=== PATIENT | male | born 1940 | race Caucasian/White ===

== ENCOUNTER 2016-09-16 12:05 | Emergency (ER) | payer MEDICARE ==
[2016-09-16] MEDS ORDERED: Sodium Chloride 0.9% 50 ML SDV IV PRN (12:51)
[2016-09-16] MEDS ORDERED: Sodium Chloride 0.9% 500 ML IV ONE (13:00)
[2016-09-16] MEDS ORDERED: Diatrizoate Meglumine/Diatrizoate Sodium 37% 30 ML Bottle PO SCH (13:00)
[2016-09-16] MEDS ORDERED: Iopamidol 612 MG/ML 100 ML Bottle IV SCH (13:00)
[2016-09-16] MEDS ORDERED: Piperacillin/Tazobactam 3.375 GM in Sodium Chloride 0.9% 100 ML IV SCH (13:45)
--- NOTE | 2016-09-16 16:21 | ER ---
HISTORY OF PRESENT ILLNESS: A 76-year-old male, who comes in with his with complaints of not feeling well. The patient states he is having some trouble breathing. He feels like he tried to swallow something that did not go down right, but he tells me this started before he ate dinner. While he was eating dinner, the sensation got worse. The patient has had problems with respiratory distress in the past and decided that he should come in quickly this time for evaluation. The patient denies any chest pain. He has not been coughing. No shortness of breath or wheezing. He states he just does not feel right. PAST MEDICAL HISTORY: Includes acute respiratory distress, obstructive atelectasis, CHF. The patient's tells me that he has been here 3 or 4 times for respiratory issues in the last year and has been in [place] a couple of times. He has a defibrillator put in by his truck technician in [place] as well. CURRENT MEDICATIONS: Metoprolol, amiodarone, and Flovent. ALLERGIES: NONE. OBJECTIVE: GENERAL APPEARANCE: The patient is awake and alert, in no respiratory distress. VITAL SIGNS: Reviewed. Initial blood pressure is 96/69, saturating 90% on room air. HEENT: Eyes, the patient has watery discharge from his eyes, he tells me this happens when he gets this shortness of breath symptom and has happened like this in the past. Oral mucous membranes are moist. Tonsils not enlarged or injected. Pharynx not inflamed. NECK: Supple. LUNGS: Clear to auscultation today. CARDIAC: Heart sounds distinct with an irregular rate. I do not hear any murmurs today. ABDOMEN: Soft and nontender. Bowel sounds are present. SKIN: Warm and dry. EXTREMITIES: There is no lower extremity edema noted. INITIAL WORKUP: An EKG was obtained, showing a slightly tachycardic rhythm, wide-complex QRS'. O2 was started also. When looking at the bus monitor, his pulse seems to vary a lot; I did correlate this with checking a radial pulse and the patient is skipping 2-4 beats, followed by a couple of weak beats and then there will be some stronger ones; it seems to go back and forth between these variations. Another thing we have noticed is when the patient changes positions, there are definite changes on the bus monitor. Labs today include a CBC showing a normal white count, lymphs are low. CMP is unremarkable. Troponin is normal. At this point, we consulted with the [facility] and per their physician's orders, the patient was started on IV fluids. He already had aspirin today right before coming in, 325 mg. An IV was started. The patient's blood pressure started to drop, readings were in the 180s over 50s and the last reading was around 80/50. The patient was given a bolus of 500 mL. [facility] has been called at this point and I talked with the ER physician at [facility] in [place], Dr. Agrawal, who accepted care for this patient. At this point, a D-dimer was also done with an elevated reading of 1960. DIAGNOSIS: 1. Irregular heartbeat. 2. Possible pulmonary embolism with an elevated D-dimer. The patient was transferred by air to [facility] in [place], leaving our facility about 2 p.m. Upon leaving our facility, he still was not in any respiratory distress and denied any pain. CRS/MODL /[id number] INDERJIT
[2016-09-16 16:41] VITALS: BP 89/46
== END 2016-09-16 14:30 ==
LOC: LB.ED 12:05
DX: I49.9 Cardiac arrhythmia, unspecified (principal); I50.9 Heart failure, unspecified; Z95.0 Presence of cardiac pacemaker
CPT/HCPCS: 36415; 80053; 84484; 85025; 85379; 93005; 96374; 99284; 99285; J2543; J7030; J7040

== ENCOUNTER 2017-01-08 02:25 | Emergency (ER) | payer MEDICARE ==
[2017-01-08] MEDS ORDERED: Albuterol/Ipratropium 3.0-0.5 MG/3 ML Neb Soln NEB PRN ×2 (02:40→02:41)
[2017-01-08] MEDS ORDERED: methylPREDNISolone Sodium Succinate 125 MG/2 ML SDV IVPUSH ONE (02:42)
[2017-01-08] MEDS ORDERED: Azithromycin 500 MG in Sodium Chloride 0.9% 250 ML IV ONE (02:43)
--- NOTE | 2017-01-08 02:49 | EDM.PDOC ---
ED HPI GENERAL MEDICAL PROBLEM - General Chief Complaint: Respiratory Problem Stated Complaint: SOB Time Seen by Provider: 01/08/17 02:25 Source of Information: Reports: Patient, Family History Limitations: Reports: Respiratory Distress - History of Present Illness INITIAL COMMENTS - FREE TEXT/NARRATIVE: states he has had a hard time breathing, his nose has been stuffy; he started to feel more SOB today. No fever, no new cough. Last visit here he was flown out to [place] with resp failure. Onset: Today Duration: Day(s):, Getting Worse Location: Reports: Chest Worsens with: Reports: Other (lying down) Associated Symptoms: Reports: Shortness of Breath - Related Data Allergies Allergy/AdvReac Type Severity Reaction Status Date / Time No Known Allergies Allergy Verified 01/08/17 03:31 Home Meds: Home Meds Albuterol [Proventil HFA] 6.7 gm INH QID PRN 03/23/16 [History] Albuterol/Ipratropium [Combivent Respimat] 4 gm IH QID #1 aer.w.adap 04/19/16 [ Rx] Past Medical History HEENT History: Reports: Impaired Vision Cardiovascular History: Reports: Other (See Below) Other Cardiovascular History: murmur implanted defibrilator Respiratory History: Reports: COPD, SOB Other Respiratory History: Current C/O SOB. - Sat when arrived in Admit room was 86% - NC @ 6lpm - Sat 92% Gastrointestinal History: Reports: GERD Musculoskeletal History: Reports: Fracture, RA, Other (See Below) Other Musculoskeletal History: Fx of L ankle when teen Hematologic History: Reports: Blood Transfusion(s) Other Immunologic History: unable to get due to severe illness of patient - Infectious Disease History Infectious Disease History: Reports: Chicken Pox, Measles - Past Surgical History Cardiovascular Surgical History: Reports: Other (See Below) Social & Family History - Family History Family Medical History: Noncontributory - Tobacco Use Smoking Status *Q: Unknown Ever Smoked Second Hand Smoke Exposure: No - Caffeine Use Caffeine Use: Reports: Coffee - Recreational Drug Use Recreational Drug Use: No ED ROS GENERAL - Review of Systems Review Of Systems: See Below Constitutional: Reports: No Symptoms HEENT: Reports: Rhinitis, Other Respiratory: Reports: Shortness of Breath, Wheezing, Cough, Sputum Cardiovascular: Reports: Dyspnea on Exertion GI/Abdominal: Reports: No Symptoms Musculoskeletal: Reports: No Symptoms Skin: Reports: No Symptoms Neurological: Reports: No Symptoms Psychiatric: Reports: No Symptoms ED EXAM, GENERAL - Physical Exam Exam: See Below Exam Limited By: No Limitations General Appearance: Alert, Moderate Distress Eye Exam: Bilateral Eye: EOMI, PERRL Nose: Nasal Drainage, Clear Rhinorrhea Throat/Mouth: Normal Inspection Head: Atraumatic, Normocephalic Neck: Normal Inspection, Supple, Non-Tender, Full Range of Motion Respiratory/Chest: Respiratory Distress, Decreased Breath Sounds, Rhonchi, Wheezing, Prolonged Expiration Cardiovascular: Tachycardia, Irregularly Irregular GI/Abdominal: Normal Bowel Sounds, No Distention Back Exam: Normal Inspection, Full Range of Motion Extremities: Normal Inspection, Normal Range of Motion Neurological: Alert, Oriented, CN II-XII Intact, Normal Cognition Skin Exam: Warm, Dry, Intact Course - Vital Signs Last Recorded V/S: Last Vital Signs Temp 98.6 F 01/08/17 02:30 Pulse 108 H 01/08/17 04:08 Resp 20 01/08/17 03:46 BP 97/77 01/08/17 04:08 Pulse Ox 93 L 01/08/17 04:17 - Orders/Labs/Meds Labs: Laboratory Tests 01/08/17 01/08/17 01/08/17 Range/Units 03:04 03:04 03:04 WBC 7.6 D (4.0-11.0) K/uL RBC 5.50 (4.50-6.50) M/uL Hgb 14.7 (13.0-18.0) g/dL Hct 43.5 (40.0-54.0) % MCV 79 (76-96) fL MCH 26.7 L (27.0-32.0) pg MCHC 33.8 (31.0-35.0) g/dL RDW 15.5 (11.0-16.0) % Plt Count 246 (150-400) K/uL MPV 9.6 (6.0-10.0) fL Neut % (Auto) 59.4 (45.0-70.0) % Lymph % (Auto) 22.1 (20.0-40.0) % [place] % (Auto) 6.2 (3.0-10.0) % Eos % (Auto) 11.8 H (1.0-5.0) % Baso % (Auto) 0.5 (0.0-0.5) % Neut # (Auto) 4.54 (2.00-7.50) K/uL Lymph # (Auto) 1.69 (1.50-4.00) K/uL [place] # (Auto) 0.47 (0.20-0.80) K/uL Eos # (Auto) 0.90 H (0.04-0.40) K/uL Baso # (Auto) 0.04 (0.02-0.10) K/uL VBG pH 7.38 (7.31-7.41) VBG pCO2 49.9 (41-51) mm/Hg VBG pO2 30 (30-50) mm/Hg VBG HCO3 29.4 H (23.0-28.0) mmol/L VBG O2 Saturation 56 L (60-85) % VBG Base Excess 4 H (-2-3) mm/L O2 Delivery Device Non rebr mask Sodium 137 (136-145) mmol/L Potassium 3.7 (3.5-5.1) mmol/L Chloride 101 (98-107) mmol/L Carbon Dioxide 30.6 (21.0-32.0) mmol/L Anion Gap 9.1 (5.0-15.0) mmol/L BUN 19 (8-26) mg/dL Creatinine 0.82 (0.70-1.30) mg/dL Est Cr Clr Drug Dosing TNP Estimated GFR (MDRD) > 60 (>60) MLS/MIN BUN/Creatinine Ratio 23.2 (6-25) Glucose 129 H (74-100) mg/dL Lactic Acid (0.90-1.70) mmol/L Calcium 9.3 (8.5-10.1) mg/dL Total Bilirubin 0.4 (0.0-1.0) mg/dL AST 19 (15-37) U/L ALT 22 (12-78) U/L Alkaline Phosphatase 58 (46-116) U/L B-Natriuretic Peptide 621 H D (0-450) pg/mL Total Protein 7.6 (6.4-8.2) g/dL Albumin 4.0 (3.4-5.0) g/dL Globulin 3.6 (2.2-4.2) g/dL Albumin/Globulin Ratio 1.1 (0.8-2.0) 01/08/17 Range/Units 03:04 WBC (4.0-11.0) K/uL RBC (4.50-6.50) M/uL Hgb (13.0-18.0) g/dL Hct (40.0-54.0) % MCV (76-96) fL MCH (27.0-32.0) pg MCHC (31.0-35.0) g/dL RDW (11.0-16.0) % Plt Count (150-400) K/uL MPV (6.0-10.0) fL Neut % (Auto) (45.0-70.0) % Lymph % (Auto) (20.0-40.0) % [place] % (Auto) (3.0-10.0) % Eos % (Auto) (1.0-5.0) % Baso % (Auto) (0.0-0.5) % Neut # (Auto) (2.00-7.50) K/uL Lymph # (Auto) (1.50-4.00) K/uL [place] # (Auto) (0.20-0.80) K/uL Eos # (Auto) (0.04-0.40) K/uL Baso # (Auto) (0.02-0.10) K/uL VBG pH (7.31-7.41) VBG pCO2 (41-51) mm/Hg VBG pO2 (30-50) mm/Hg VBG HCO3 (23.0-28.0) mmol/L VBG O2 Saturation (60-85) % VBG Base Excess (-2-3) mm/L O2 Delivery Device Sodium (136-145) mmol/L Potassium (3.5-5.1) mmol/L Chloride (98-107) mmol/L Carbon Dioxide (21.0-32.0) mmol/L Anion Gap (5.0-15.0) mmol/L BUN (8-26) mg/dL Creatinine (0.70-1.30) mg/dL Est Cr Clr Drug Dosing Estimated GFR (MDRD) (>60) MLS/MIN BUN/Creatinine Ratio (6-25) Glucose (74-100) mg/dL Lactic Acid 0.83 L (0.90-1.70) mmol/L Calcium (8.5-10.1) mg/dL Total Bilirubin (0.0-1.0) mg/dL AST (15-37) U/L ALT (12-78) U/L Alkaline Phosphatase (46-116) U/L B-Natriuretic Peptide (0-450) pg/mL Total Protein (6.4-8.2) g/dL Albumin (3.4-5.0) g/dL Globulin (2.2-4.2) g/dL Albumin/Globulin Ratio (0.8-2.0) Meds: Medications Discontinued Medications Generic Name Dose Route Start Last Admin Trade Name Freq PRN Reason Stop Dose Admin Albuterol 2.5 mg 01/08/17 03:10 01/08/17 03:12 Proventil Neb Soln NEB 01/08/17 03:11 2.5 mg ONETIME ONE Administration Albuterol/Ipratropium 3 ml 01/08/17 02:40 01/08/17 02:28 Duoneb 3.0-0.5 Mg/3 Ml NEB 3 ml Q2H PRN Administration Shortness of Breath Albuterol/Ipratropium 3 ml 01/08/17 02:41 01/08/17 02:45 Duoneb 3.0-0.5 Mg/3 Ml NEB 3 ml Q2H PRN Administration Shortness of Breath Furosemide 20 mg 01/08/17 03:59 01/08/17 04:05 Lasix IVPUSH 01/08/17 04:00 20 mg NOW ONE Administration Furosemide Confirm 01/08/17 04:04 01/08/17 04:15 Lasix Administered 01/08/17 04:05 Not Given Dose 100 mg .ROUTE .STK-MED ONE Azithromycin 500 mg/ Sodium 250 mls @ 250 mls/hr 01/08/17 02:43 01/08/17 03: 03 Chloride IV 01/08/17 03:42 250 mls/hr ONETIME ONE Administration Ceftriaxone Sodium 1 gm/ 50 mls @ 100 mls/hr 01/08/17 03:20 01/08/17 04:09 Sodium Chloride IV 01/08/17 03:49 100 mls/hr ONETIME ONE Administration Methylprednisolone Sodium Succinate 125 mg 01/08/17 02:42 01/08/17 02:49 Solu-Medrol IVPUSH 01/08/17 02:43 125 mg ONETIME ONE Administration - Re-Assessments/Exams Free Text/Narrative Re-Assessment/Exam: 01/08/17 03:21 IV established Duo neb given Solumedrol 125 mg IV Labs here for BC / studies Chest xray Duoneb Azithromycin 500 mg IV Off NRB to 4 L NC Sats 90%-91% albuterol neb Rocephin ordered 01/08/17 03:31 He states he is feeling a little better. 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 01/08/17 04:00 He is on 1.5 L now and Sats are 93% He wants to go home. Will give him 20 mg of Lasix X1 dose Home with Prednisone 50 mg daily for 5 days Levaquin 750 mg daily for 10 days He is to return if his oxygen level falls below 90% and sustains. Departure - Departure Time of Disposition: 05:00 Disposition: Home, Self-Care 01 Condition: Fair Clinical Impression: Shortness of breath Pneumonia Qualifiers: Pneumonia type: due to unspecified organism Laterality: unspecified laterality Lung location: unspecified part of lung Qualified Code(s): J18.9 - Pneumonia, unspecified organism - Discharge Information Instructions: Levofloxacin tablets, Prednisone tablets Referrals: PCP,None [Primary Care Provider] - Forms: ED Department Discharge Additional Instructions: Fill provided prescriptions at regular pharmacy tomorrow and begin taking as directed, starting at 5pm on 01/08/2017 and daily until all pills are gone, as instructed. Activity as tolerated. Follow up with regular provider as needed. Should symptoms worsen, or persist, follow up in clinic right away. Call with any questions. - Problem List & Annotations (1) Pneumonia SNOMED Code(s): 841137753 Code(s): J18.9 - PNEUMONIA, UNSPECIFIED ORGANISM Status: Acute Priority: High Qualifiers: Pneumonia type: due to unspecified organism Laterality: unspecified laterality Lung location: unspecified part of lung Qualified Code(s): J18.9 - Pneumonia, unspecified organism - Problem List Review Problem List Initiated/Reviewed/Updated: Yes - Assessment/Plan Plan: Home, I did recommend a night at the hospital however he feels he can go home. He is tolerating being off of oxygen now; sats 94% on RA To start prednisone 50 mg daily for 5 days; to start at 5 pm this evening Levaquin 750 mg daily for 10 days; to start at 5 pm Nasal saline prn zyrtec 10 mg daily Albuterol nebs every 4 hours and as needed; explained that if he is needed to do this hourly, he needs to return.
[2017-01-08] MEDS ORDERED: Albuterol 0.083% 2.5 MG/3 ML Neb Soln NEB ONE (03:10)
[2017-01-08] MEDS ORDERED: cefTRIAXone 1 GM in Sodium Chloride 0.9% 50 ML IV ONE (03:20)
[2017-01-08] MEDS ORDERED: Furosemide 40 MG/4 ML VIAL IVPUSH ONE (03:59)
[2017-01-08] MEDS ORDERED: Furosemide 100 MG/10 ML SDV ONE (04:04)
[2017-01-08 04:20] VITALS: BP 97/77
--- NOTE | 2017-01-08 09:31 | CR ---
DATE OF SERVICE: 01/08/2017 CLINICAL DATA: SOB AP PORTABLE CHEST Comparison is made to a prior exam dated 06/29/2016. The heart size is stable. The cardiac pacer and pacer wire remain in unchanged position. 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 It appears unchanged from the prior exam. The left hilum appears mildly prominent, unchanged from the prior exam. The poorly defined area of increased density in the right mid lung on the prior exam has partially resolved. The exam is otherwise unchanged. No new abnormalities. [id number] [facility]
== END 2017-01-08 04:25 | disposition home or self-care (01) ==
LOC: LB.ED 02:25
DX: J18.9 Pneumonia, unspecified organism (principal); J44.9 Chronic obstructive pulmonary disease, unspecified; K21.9 Gastro-esophageal reflux disease without esophagitis; M06.9 Rheumatoid arthritis, unspecified
CPT/HCPCS: 36415; 71010; 80053; 82803; 83605; 83880; 85025; 87040; 96374; 99283; J0456; J0696; J1940; J2930; J7050; J7620; 99284

== ENCOUNTER 2017-01-27 22:12 | Emergency (ER) | payer MEDICARE ==
[2017-01-27] MEDS ORDERED: Albuterol/Ipratropium 3.0-0.5 MG/3 ML Neb Soln NEB PRN (22:28)
[2017-01-27] MEDS ORDERED: Sodium Chloride 0.9% 10 ML Syringe FLUSH PRN (22:28)
[2017-01-27] MEDS ORDERED: methylPREDNISolone Sodium Succinate 125 MG/2 ML SDV IVPUSH ONE (22:29)
[2017-01-27] MEDS ORDERED: Loratadine 5 MG/5 ML Soln ML (120 ML Bottle) PO ONE (22:36)
[2017-01-28 00:14] VITALS: BP 124/63
--- NOTE | 2017-01-28 08:38 | CR ---
DATE OF SERVICE: 01/27/17 CLINICAL DATA: SOB PORTABLE CHEST: Comparison made to a prior exam dated 01/08/2017. The cardiac pacer and pacer wire remain unchanged in position. The heart size is stable. 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 There is persistent prominence of the left hilum. These findings are unchanged from the prior exam. There are mild atelectasis changes in the right lung base. The right lung is otherwise clear. The exam is otherwise unchanged from the prior. The splenic flexure of the colon appears to be mildly distended. [id number] MTDD
--- NOTE | 2017-02-06 10:45 | EDM.PDOC ---
ED HPI GENERAL MEDICAL PROBLEM - General Chief Complaint: General Stated Complaint: dyspnea Time Seen by Provider: 01/27/17 22:30 Source of Information: Reports: Patient History Limitations: Reports: No Limitations - History of Present Illness INITIAL COMMENTS - FREE TEXT/NARRATIVE: This is a 77yo M who came in to the ER and states he felt sob. He went to a movie and was doing well and per started coughing and then felt sob. He came to the ER shortly after he started to cough with complaints of dyspnea. He has a history of COPD. He states he takes all his medications. He did not try any treatment at home. Onset: Sudden Duration: Hour(s): Location: Reports: Chest Severity: Mild Improves with: Reports: None Worsens with: Reports: None Associated Symptoms: Reports: Shortness of Breath - Related Data Allergies Allergy/AdvReac Type Severity Reaction Status Date / Time No Known Allergies Allergy Verified 01/08/17 03:31 Home Meds: Home Meds Albuterol [Proventil HFA] 6.7 gm INH QID PRN 03/23/16 [History] Albuterol/Ipratropium [Combivent Respimat] 4 gm IH QID #1 aer.w.adap 04/19/16 [ Rx] Past Medical History HEENT History: Reports: Impaired Vision Cardiovascular History: Reports: Heart Failure, Heart Murmur, SOB on Exertion, Other (See Below) Other Cardiovascular History: murmur implanted defibrilator Respiratory History: Reports: COPD, SOB Other Respiratory History: Current C/O SOB.; diaphgragmatic hernia and paralyzed diaphragm, 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 (<25%) Gastrointestinal History: Reports: GERD Musculoskeletal History: Reports: Fracture, RA, Other (See Below) Other Musculoskeletal History: Fx of L ankle when teen Hematologic History: Reports: Blood Transfusion(s) Other Immunologic History: unable to get due to severe illness of patient - Infectious Disease History Infectious Disease History: Reports: Chicken Pox, Measles - Past Surgical History Cardiovascular Surgical History: Reports: AICD, Other (See Below) Other Cardiovascular Surgeries/Procedures: defibulater placed 04/24/2016 Social & Family History - Family History Family Medical History: Noncontributory - Tobacco Use Smoking Status *Q: Never Smoker Second Hand Smoke Exposure: No - Caffeine Use Caffeine Use: Reports: Coffee - Recreational Drug Use Recreational Drug Use: No ED ROS GENERAL - Review of Systems Review Of Systems: ROS reveals no pertinent complaints other than HPI. ED EXAM, GENERAL - Physical Exam Exam: See Below Exam Limited By: No Limitations General Appearance: Alert, WD/WN, Mild Distress Eye Exam: Bilateral Eye: EOMI Ears: Normal External Exam Nose: Normal Inspection Throat/Mouth: Normal Inspection Head: Atraumatic, Normocephalic Neck: Normal Inspection Respiratory/Chest: No Respiratory Distress, Decreased Breath Sounds, Wheezing Cardiovascular: Normal Peripheral Pulses Extremities: Normal Inspection Neurological: Alert, Oriented, CN II-XII Intact Psychiatric: Normal Affect, Normal Mood Skin Exam: Warm, Dry, Intact Course - Vital Signs Last Recorded V/S: Last Vital Signs Temp 37.4 C 01/27/17 22:20 Pulse 112 H 01/27/17 22:20 Resp 30 H 01/27/17 22:20 BP 124/63 01/27/17 22:20 Pulse Ox 93 L 01/28/17 01:12 - Orders/Labs/Meds Labs: Laboratory Tests 01/27/17 01/27/17 01/27/17 Range/Units 22:35 22:35 22:35 WBC 6.7 (4.0-11.0) K/uL RBC 5.24 (4.50-6.50) M/uL Hgb 13.9 (13.0-18.0) g/dL Hct 41.5 (40.0-54.0) % MCV 79 (76-96) fL MCH 26.5 L (27.0-32.0) pg MCHC 33.5 (31.0-35.0) g/dL RDW 15.4 (11.0-16.0) % Plt Count 212 (150-400) K/uL MPV 9.7 (6.0-10.0) fL Neut % (Auto) 63.2 (45.0-70.0) % Lymph % (Auto) 19.2 L (20.0-40.0) % [place] % (Auto) 6.6 (3.0-10.0) % Eos % (Auto) 10.4 H (1.0-5.0) % Baso % (Auto) 0.6 H (0.0-0.5) % Neut # (Auto) 4.24 (2.00-7.50) K/uL Lymph # (Auto) 1.29 L (1.50-4.00) K/uL [place] # (Auto) 0.44 (0.20-0.80) K/uL Eos # (Auto) 0.70 H (0.04-0.40) K/uL Baso # (Auto) 0.04 (0.02-0.10) K/uL VBG pH 7.33 (7.31-7.41) Sodium 139 (136-145) mmol/L Potassium 4.1 (3.5-5.1) mmol/L Chloride 103 (98-107) mmol/L Carbon Dioxide 29.9 (21.0-32.0) mmol/L Anion Gap 10.2 (5.0-15.0) mmol/L BUN 19 (8-26) mg/dL Creatinine 0.64 L D (0.70-1.30) mg/dL Est Cr Clr Drug Dosing 86.82 mL/min Estimated GFR (MDRD) > 60 (>60) MLS/MIN BUN/Creatinine Ratio 29.7 H (6-25) Glucose 96 (74-100) mg/dL Calcium 8.7 (8.5-10.1) mg/dL Troponin I < 0.017 (0.000-0.060) ng/mL B-Natriuretic Peptide 1090 H D (0-450) pg/mL Meds: Medications Discontinued Medications Generic Name Dose Route Start Last Admin Trade Name Freq PRN Reason Stop Dose Admin Albuterol/Ipratropium 3 ml 01/27/17 22:28 01/27/17 22:25 Duoneb 3.0-0.5 Mg/3 Ml NEB 3 ml Q4H PRN Administration Shortness of Breath Loratadine 10 mg 01/27/17 22:36 01/27/17 22:37 Claritin PO 01/27/17 22:37 10 mg DAILY ONE Administration Methylprednisolone Sodium Succinate 125 mg 01/27/17 22:29 01/27/17 22:35 Solu-Medrol IVPUSH 01/27/17 22:30 125 mg ONETIME ONE Administration Sodium Chloride 10 ml 01/27/17 22:28 01/27/17 22:40 Saline Flush FLUSH 10 ml ASDIRECTED PRN Administration Keep Vein Open - Re-Assessments/Exams Free Text/Narrative Re-Assessment/Exam: Greatly improved symptoms with nebulizer. Oxygen saturations around 94-96%. Departure - Departure Time of Disposition: 00:15 Disposition: Home, Self-Care 01 Condition: Good Clinical Impression: Cough COPD (chronic obstructive pulmonary disease) Qualifiers: COPD type: chronic bronchitis Chronic bronchitis type: simple Qualified Code(s) : J41.0 - Simple chronic bronchitis - Discharge Information Forms: ED Department Discharge Additional Instructions: Routine follow up with regular provider within next week. Should symptoms worsen, return to be seen. Call with any questions. Counseled on medication compliance and use of nebulizer. Patient agrees with plan of care and f/u.
== END 2017-01-27 23:25 | disposition home or self-care (01) ==
LOC: LB.ED 22:12
DX: J41.0 Simple chronic bronchitis (principal); I50.9 Heart failure, unspecified; K21.9 Gastro-esophageal reflux disease without esophagitis; Z95.810 Presence of automatic (implantable) cardiac defibrillator
CPT/HCPCS: 36415; 71010; 80048; 82800; 83880; 84484; 85025; 93005; 96374; 99285; A9270; J2930; J7050; J7620; 99283

== ENCOUNTER 2017-02-24 08:58 | Emergency (ER) | payer MEDICARE ==
--- NOTE | 2017-02-24 09:41 | EDM.PDOC ---
ED HPI GENERAL MEDICAL PROBLEM - General Stated Complaint: LOW OXYGEN SAT Time Seen by Provider: 02/24/17 09:00 Source of Information: Reports: Patient History Limitations: Reports: No Limitations - History of Present Illness INITIAL COMMENTS - FREE TEXT/NARRATIVE: According to patient he was fine until yesterday, last night he started to cough and have some productive sputum. He has been having nasal congestion and drainage since last night too.Today morning he felt a little short of breath and hence he came into the emergency room. Cough is minimally productive. Wheezing. No sore throat, fever or chills. His initial SPO2 was 88% on room air , he was started on O2 by non rebreather. 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 No nausea or vomiting. Feels weak and tired. No other complaints. Onset: Today Improves with: Reports: None Worsens with: Reports: None Associated Symptoms: Reports: Cough, Shortness of Breath, Weakness. Denies: Confusion, Chest Pain, Fever/Chills, Headaches, Malaise, Nausea/Vomiting, Rash, Seizure, Syncope - Related Data Allergies Allergy/AdvReac Type Severity Reaction Status Date / Time No Known Allergies Allergy Verified 02/24/17 09:22 Home Meds: Home Meds Albuterol [Proventil HFA] 6.7 gm INH QID PRN 03/23/16 [History] Albuterol/Ipratropium [Combivent Respimat] 4 gm IH QID #1 aer.w.adap 04/19/16 [ Rx] Past Medical History HEENT History: Reports: Impaired Vision Cardiovascular History: Reports: Heart Failure, Heart Murmur, SOB on Exertion, Other (See Below) Other Cardiovascular History: murmur implanted defibrilator Respiratory History: Reports: COPD, SOB Other Respiratory History: Current C/O SOB.; diaphgragmatic hernia and paralyzed diaphragm, 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 (<25%) Gastrointestinal History: Reports: GERD Musculoskeletal History: Reports: Fracture, RA, Other (See Below) Other Musculoskeletal History: Fx of L ankle when teen Hematologic History: Reports: Blood Transfusion(s) Other Immunologic History: unable to get due to severe illness of patient - Infectious Disease History Infectious Disease History: Reports: Chicken Pox, Measles - Past Surgical History Cardiovascular Surgical History: Reports: AICD, Other (See Below) Other Cardiovascular Surgeries/Procedures: defibulater placed 04/24/2016 Social & Family History - Family History Family Medical History: Noncontributory - Tobacco Use Smoking Status *Q: Never Smoker Second Hand Smoke Exposure: No - Caffeine Use Caffeine Use: Reports: Coffee - Recreational Drug Use Recreational Drug Use: No ED ROS GENERAL - Review of Systems Review Of Systems: See Below Constitutional: Reports: Weakness. Denies: Fever, Chills, Night Sweats HEENT: Reports: Rhinitis, Sinus Problem. Denies: Throat Pain, Throat Swelling Respiratory: Reports: Shortness of Breath, Wheezing, Cough, Sputum Cardiovascular: Denies: Chest Pain, Lightheadedness GI/Abdominal: Denies: Abdominal Pain, Nausea, Vomiting : Denies: Dysuria, Urinary Retention Musculoskeletal: Denies: Joint Pain, Joint Swelling Skin: Denies: Bruising, Pruritis, Rash Neurological: Denies: Confusion, Dizziness, Headache ED EXAM, GENERAL - Physical Exam Exam: See Below Exam Limited By: No Limitations General Appearance: Alert, WD/WN, No Apparent Distress Eye Exam: Bilateral Eye: EOMI, PERRL Ears: Normal External Exam, Normal Canal, Hearing Grossly Normal, Normal TMs Ear Exam: Bilateral Ear: Auricle Normal, Canal Normal, TM normal Nose: Normal Inspection, Normal Mucosa, No Blood, Nasal Drainage (clear) Throat/Mouth: Normal Inspection, Normal Lips, Normal Teeth, Normal Gums, Normal Oropharynx, Normal Voice, No Airway Compromise Head: Atraumatic, Normocephalic Neck: Normal Inspection, Supple, Non-Tender, Full Range of Motion Respiratory/Chest: No Respiratory Distress, No Accessory Muscle Use, Chest Non- Tender, Decreased Breath Sounds (B/L), Rhonchi (Scattered fine rhonchi heard all over the lung viera). No: Crackles, Rales Cardiovascular: Normal Peripheral Pulses, Regular Rate, Rhythm, No Edema, No Gallop, No JVD, No Murmur, No Rub Extremities: Normal Inspection, Normal Range of Motion, Non-Tender, Normal Capillary Refill, No Pedal Edema Course - Vital Signs Text/Narrative:: Pt's Chest Xray is normal, and his CBC is normal at 8.4. Pt did receive duoneb one dose in the emergency room, claims is breathing is better, but still has nasal congestion and clearing his throat. Pt has significant restrictive lung disease and hence he has low O2 sats. HE is running at 88-89% on Room air, but not in any respiratory distress. I have reassured patient, that he has early URi, but considering his restrictive lung disease, I have started him on ZPAK to prevent any deterioration or chest infection. Advised steam inhalations 2-3 times daily, continue flovent inhaler as before, but increase albuterol inhaler to 2 puff every 4 hrs. Also pt will need home O2 and also home trend-ox testing. I have a feeling that he has chronic hypoxia. Pt and his spouse understand the plan and agree to it. Last Recorded V/S: Last Vital Signs Temp 98.6 F 02/24/17 09:48 Pulse 115 H 02/24/17 09:48 Resp 24 H 02/24/17 09:48 BP 152/99 H 02/24/17 09:48 Pulse Ox 86 L 02/24/17 09:48 - Orders/Labs/Meds Orders: Active Orders 24 hr Category Date Time Status Chest 2V [CR] Stat Exams 02/24/17 09:35 Taken Labs: Laboratory Tests 02/24/17 Range/Units 09:34 WBC 8.5 D (4.0-11.0) K/uL RBC 5.52 (4.50-6.50) M/uL Hgb 15.0 (13.0-18.0) g/dL Hct 43.5 (40.0-54.0) % MCV 79 (76-96) fL MCH 27.2 (27.0-32.0) pg MCHC 34.5 (31.0-35.0) g/dL RDW 15.6 (11.0-16.0) % Plt Count 228 (150-400) K/uL MPV 9.2 (6.0-10.0) fL Neut % (Auto) 67.8 (45.0-70.0) % Lymph % (Auto) 13.5 L (20.0-40.0) % [place] % (Auto) 6.0 (3.0-10.0) % Eos % (Auto) 12.3 H (1.0-5.0) % Baso % (Auto) 0.4 (0.0-0.5) % Neut # (Auto) 5.74 (2.00-7.50) K/uL Lymph # (Auto) 1.14 L (1.50-4.00) K/uL [place] # (Auto) 0.51 (0.20-0.80) K/uL Eos # (Auto) 1.04 H (0.04-0.40) K/uL Baso # (Auto) 0.03 (0.02-0.10) K/uL Departure - Departure Time of Disposition: 10:30 Disposition: Home, Self-Care 01 Condition: Fair Clinical Impression: Viral URI with cough - Discharge Information Referrals: PCP,None [Primary Care Provider] - - Problem List & Annotations (1) Viral URI with cough SNOMED Code(s): 63416737 Code(s): J06.9 - ACUTE UPPER RESPIRATORY INFECTION, UNSPECIFIED; B97.89 - OTH VIRAL AGENTS THE CAUSE OF DISEASES CLASSD [id number] Status: Acute Current Visit: Yes - Problem List Review Problem List Initiated/Reviewed/Updated: Yes - My Orders Last 24 Hours: My Active Orders 02/24/17 09:35 Chest 2V [CR] Stat - Assessment/Plan Last 24 Hours: My Active Orders 02/24/17 09:35 Chest 2V [CR] Stat Assessment:: Viral URI with cough Plan: I have reassured patient, that he has early URi, but considering his restrictive lung disease, I have started him on ZPAK to prevent any deterioration or chest infection. Advised steam inhalations 2-3 times daily, continue flovent inhaler as before, but increase albuterol inhaler to 2 puff every 4 hrs. Also pt will need home O2 and also home trend-ox testing. I have a feeling that he has chronic hypoxia. Pt and his spouse understand the plan and agree to it.
[2017-02-24 09:51] VITALS: BP 152/99
[2017-02-24] MEDS ORDERED: Azithromycin 250 MG Tab ONE (10:10)
[2017-02-24] MEDS ORDERED: Albuterol/Ipratropium 3.0-0.5 MG/3 ML Neb Soln NEB PRN (10:43)
--- NOTE | 2017-02-25 07:24 | CR ---
DATE OF SERVICE: 02/24/17 CLINICAL DATA: cough and SOB PA AND LATERAL CHEST: Comparison made to a prior exam dated 01/27/17. The heart size is stable. The cardiac pacer remains unchanged in position. There is persistent eventration of the left hemidiaphragm and atelectatic changes in the left lung base. The right lung remains hyperexpanded. No significant changes from the prior exam. [id number] MTDD
== END 2017-02-24 10:15 | disposition home or self-care (01) ==
LOC: LB.ED 08:58
DX: J06.9 Acute upper respiratory infection, unspecified (principal); J44.9 Chronic obstructive pulmonary disease, unspecified
CPT/HCPCS: 36415; 71020; 85025; 99284; A9270; 99283

== ENCOUNTER 2017-03-13 04:10 | Emergency (ER) | payer MEDICARE ==
[2017-03-13] MEDS ORDERED: methylPREDNISolone Sodium Succinate 125 MG/2 ML SDV IM ONE (04:25)
--- NOTE | 2017-03-13 04:35 | EDM.PDOC ---
ED HPI GENERAL MEDICAL PROBLEM - General Chief Complaint: Respiratory Problem Stated Complaint: SOB Time Seen by Provider: 03/13/17 04:15 Source of Information: Reports: Patient, Family History Limitations: Reports: Respiratory Distress - History of Present Illness INITIAL COMMENTS - FREE TEXT/NARRATIVE: This is a 77yo M with history of restrictive airway disease, prior hypoxic respiratory failure, history of ventricular tachycardia, grade 1 diastolic dysfunction, here for shortness of breath. Per patient's oxygen saturation dropped to 65% and when brought in with respiratory distress he was ranging 71- 84 on room air and placed on a non-rebreather and came up to 92-94%. Patient states he was short of breath but but denies any chest pain. He has trouble speaking due to trying to catch his breath with the non-rebreather. Per patient has been getting short of breath gradually worse the past 3 days and possibly longer. states he has been having increased yellowy mucus of the nasopharyngeal passages that he coughs or blows out his nose. Onset: Gradual Duration: Day(s):, Getting Worse Location: Reports: Chest Severity: Severe Improves with: Reports: None Worsens with: Reports: Movement Associated Symptoms: Reports: Shortness of Breath Treatments CAREER DEVELOPMENT ENGINEER: Reports: Home Treatments, Other Medication(s) - Related Data Allergies Allergy/AdvReac Type Severity Reaction Status Date / Time No Known Allergies Allergy Verified 02/24/17 10:46 Home Meds: Home Meds Albuterol [Proventil HFA] 6.7 gm INH QID PRN 03/23/16 [History] Albuterol/Ipratropium [Combivent Respimat] 4 gm IH QID #1 aer.w.adap 04/19/16 [ Rx] Past Medical History HEENT History: Reports: Impaired Vision Cardiovascular History: Reports: Heart Failure, Heart Murmur, SOB on Exertion, Other (See Below) Other Cardiovascular History: murmur implanted defibrilator Respiratory History: Reports: COPD, SOB Other Respiratory History: Current C/O SOB.; diaphgragmatic hernia and paralyzed diaphragm, 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 (<25%) Gastrointestinal History: Reports: GERD Musculoskeletal History: Reports: Fracture, RA, Other (See Below) Other Musculoskeletal History: Fx of L ankle when teen Hematologic History: Reports: Blood Transfusion(s) Other Immunologic History: unable to get due to severe illness of patient - Infectious Disease History Infectious Disease History: Reports: Chicken Pox, Measles - Past Surgical History Cardiovascular Surgical History: Reports: AICD, Other (See Below) Other Cardiovascular Surgeries/Procedures: defibulater placed 04/24/2016 Social & Family History - Family History Family Medical History: Noncontributory - Tobacco Use Smoking Status *Q: Never Smoker Second Hand Smoke Exposure: No - Caffeine Use Caffeine Use: Reports: Coffee - Recreational Drug Use Recreational Drug Use: No ED ROS GENERAL - Review of Systems Review Of Systems: See Below Constitutional: Reports: No Symptoms HEENT: Reports: No Symptoms Respiratory: Reports: Shortness of Breath, Wheezing, Cough, Sputum Cardiovascular: Reports: No Symptoms Endocrine: Reports: No Symptoms GI/Abdominal: Reports: No Symptoms : Reports: No Symptoms Musculoskeletal: Reports: No Symptoms Skin: Reports: No Symptoms Neurological: Reports: No Symptoms Psychiatric: Reports: Agitation, Anxiety ED EXAM, GENERAL - Physical Exam Exam: See Below Exam Limited By: Respiratory Distress General Appearance: Anxious, Moderate Distress Eye Exam: Bilateral Eye: EOMI Ears: Normal External Exam Nose: Normal Inspection, Nasal Drainage Head: Atraumatic, Normocephalic Neck: Normal Inspection Respiratory/Chest: Respiratory Distress, Decreased Breath Sounds, Rales, Wheezing Cardiovascular: Normal Peripheral Pulses, Regular Rate, Rhythm Extremities: Normal Inspection Neurological: Alert, Oriented Psychiatric: Anxious Skin Exam: Dry, Intact, Cool Course - Orders/Labs/Meds Orders: Active Orders 24 hr Category Date Time Status RT Aerosol Therapy [RC] ASDIRECTED Care 03/13/17 04:42 Active Chest 1V Frontal [CR] Stat Exams 03/13/17 04:33 Ordered Albuterol/Ipratropium [DuoNeb 3.0-0.5 MG/3 ML] Med 03/13/17 04:42 Active 3 ml NEB Q2H PRN Medication Orders Albuterol/Ipratropium (Duoneb 3.0-0.5 Mg/3 Ml) 3 ml NEB Q2H PRN PRN Reason: Shortness of Breath Labs: Laboratory Tests 03/13/17 03/13/17 03/13/17 Range/Units 05:15 05:15 05:15 WBC 8.5 (4.0-11.0) K/uL RBC 5.35 (4.50-6.50) M/uL Hgb 14.5 (13.0-18.0) g/dL Hct 44.3 (40.0-54.0) % MCV 83 (76-96) fL MCH 27.1 (27.0-32.0) pg MCHC 32.7 (31.0-35.0) g/dL RDW 15.1 (11.0-16.0) % Plt Count 281 D (150-400) K/uL MPV 9.4 (6.0-10.0) fL Neut % (Auto) 36.7 L (45.0-70.0) % Lymph % (Auto) 31.7 (20.0-40.0) % [place] % (Auto) 7.9 (3.0-10.0) % Eos % (Auto) 23.2 H (1.0-5.0) % Baso % (Auto) 0.5 (0.0-0.5) % Neut # (Auto) 3.12 (2.00-7.50) K/uL Lymph # (Auto) 2.69 (1.50-4.00) K/uL [place] # (Auto) 0.67 (0.20-0.80) K/uL Eos # (Auto) 1.97 H (0.04-0.40) K/uL Baso # (Auto) 0.04 (0.02-0.10) K/uL VBG pH 7.02 L* (7.31-7.41) VBG pCO2 106 H (41-51) mm/Hg VBG pO2 14 L (30-50) mm/Hg VBG HCO3 28.0 (23.0-28.0) mmol/L VBG O2 Saturation 31 L (60-85) % VBG Base Excess -3 L (-2-3) mm/L O2 Delivery Device Nasal cannula Sodium 143 (136-145) mmol/L Potassium 4.1 (3.5-5.1) mmol/L Chloride 102 (98-107) mmol/L Carbon Dioxide 31.1 (21.0-32.0) mmol/L Anion Gap 14.0 (5.0-15.0) mmol/L BUN 19 (8-26) mg/dL Creatinine 0.93 D (0.70-1.30) mg/dL Est Cr Clr Drug Dosing TNP Estimated GFR (MDRD) > 60 (>60) MLS/MIN BUN/Creatinine Ratio 20.4 (6-25) Glucose 174 H D (74-100) mg/dL Calcium 9.4 (8.5-10.1) mg/dL B-Natriuretic Peptide (0-450) pg/mL 03/13/17 Range/Units 05:15 WBC (4.0-11.0) K/uL RBC (4.50-6.50) M/uL Hgb (13.0-18.0) g/dL Hct (40.0-54.0) % MCV (76-96) fL MCH (27.0-32.0) pg MCHC (31.0-35.0) g/dL RDW (11.0-16.0) % Plt Count (150-400) K/uL MPV (6.0-10.0) fL Neut % (Auto) (45.0-70.0) % Lymph % (Auto) (20.0-40.0) % [place] % (Auto) (3.0-10.0) % Eos % (Auto) (1.0-5.0) % Baso % (Auto) (0.0-0.5) % Neut # (Auto) (2.00-7.50) K/uL Lymph # (Auto) (1.50-4.00) K/uL [place] # (Auto) (0.20-0.80) K/uL Eos # (Auto) (0.04-0.40) K/uL Baso # (Auto) (0.02-0.10) K/uL VBG pH (7.31-7.41) VBG pCO2 (41-51) mm/Hg VBG pO2 (30-50) mm/Hg VBG HCO3 (23.0-28.0) mmol/L VBG O2 Saturation (60-85) % VBG Base Excess (-2-3) mm/L O2 Delivery Device Sodium (136-145) mmol/L Potassium (3.5-5.1) mmol/L Chloride (98-107) mmol/L Carbon Dioxide (21.0-32.0) mmol/L Anion Gap (5.0-15.0) mmol/L BUN (8-26) mg/dL Creatinine (0.70-1.30) mg/dL Est Cr Clr Drug Dosing Estimated GFR (MDRD) (>60) MLS/MIN BUN/Creatinine Ratio (6-25) Glucose (74-100) mg/dL Calcium (8.5-10.1) mg/dL B-Natriuretic Peptide 1643 H D (0-450) pg/mL Meds: Medications Generic Name Dose Route Start Last Admin Trade Name Freq PRN Reason Stop Dose Admin Albuterol/Ipratropium 3 ml 03/13/17 04:42 Duoneb 3.0-0.5 Mg/3 Ml NEB Q2H PRN Shortness of Breath - Re-Assessments/Exams Free Text/Narrative Re-Assessment/Exam: Patient was given a duoneb treatment and during treatment his oxygen saturation dropped from 92 to 71 and gradually returned to 92 after treatment and replacing the non-rebreather. Patient was stable with increased respirations and oxygen saturation ranging 85-92 and stated he was feeling fine. Labs ordered and CXR ordered when he began to have increased distress of respiration and stating he is not looking well in his wheel chair. Patient appeared to get diaphoretic and have increased labored breathing. He was moved from his wheelchair to the bed and had lost consciousness. Patient intubated at this time with bronchoscope. Initial check of oxygen was fair at 85% and breath sounds good. While securing the airway there was increased distension of the abdomen and desaturation and tube was repositioned without improvement and then removed and patient bagged and re-intubated and secured with good air sounds bilaterally. Patient saturations at this time was between 85-94%. Difficulty obtaining IV access and IO line placed in left tibia. Patient on monitor and rate fluctuating between 40-90. Rate did elevate to 120's 2-3 times but would return to 40-60's with pacing baker on the monitor. Transfer had been initiated and [facility] on the way. Called for accepting at [facility] and Dr. Franciscoback accepting. Patient rhythm changed after discussion with ER doc in [place] to V-tac and patient's own AICD appeared to reset the rhythm. We continue oxygenation with saturation in the mid 80's. Heart rate decreased to 40 -50's with pace activity. Fluids had been started and present in ER. had come and gone a few times during the process. Patient rate spiked 2-3 times and possibly AICD activated 2-3 more times. Rhythm then went into asystole and CPR started. Check after 2 minutes with no shock advised and CPR continued. Logan was placed but was faulty and unable to be activated and then removed and CPR continued. CPR continued for over 30 minutes and at bedside during CPR and decided to stop CPR. Stopping CPR confirmed twice with and Time of at 0530am. Departure - Departure Time of Disposition: 05:30 Disposition: 20 Preliminary Cause of *Q: Respiratory Failure Clinical Impression: Acute and chronic respiratory failure with hypoxia, Acute respiratory distress , Shortness of breath Congestive heart failure (CHF) Qualifiers: Congestive heart failure type: unspecified congestive heart failure type Congestive heart failure chronicity: acute Qualified Code(s): I50.9 - Heart failure, unspecified - Discharge Information Forms: ED Department Discharge - Problem List & Annotations (1) Shortness of breath SNOMED Code(s): 842076167 Code(s): R06.02 - SHORTNESS OF BREATH Status: Acute Current Visit: Yes (2) COPD (chronic obstructive pulmonary disease) SNOMED Code(s): 30172273 Code(s): J44.9 - CHRONIC OBSTRUCTIVE PULMONARY DISEASE, UNSPECIFIED Status : Acute Current Visit: No Qualifiers: COPD type: chronic bronchitis Chronic bronchitis type: simple Qualified Code(s): J41.0 - Simple chronic bronchitis (3) Congestive heart failure (CHF) SNOMED Code(s): 06127429 Code(s): I50.9 - HEART FAILURE, UNSPECIFIED Status: Chronic Current Visit : Yes Onset Date: ~03/22/16 Annotation/Comment:: has Echo and Stress test set up with jewelry casting model maker apprentice Qualifiers: Congestive heart failure type: unspecified congestive heart failure type Congestive heart failure chronicity: chronic Qualified Code(s): I50.9 - Heart failure, unspecified (4) Respiratory distress, acute SNOMED Code(s): 249388444 Code(s): R06.00 - DYSPNEA, UNSPECIFIED Status: Acute Priority: High Current Visit: No Onset Date: ~04/17/16 (5) Acute and chronic respiratory failure with hypoxia SNOMED Code(s): 005559948 Code(s): J96.21 - ACUTE AND CHRONIC RESPIRATORY FAILURE WITH HYPOXIA Status : Acute Current Visit: Yes - Problem List Review Problem List Initiated/Reviewed/Updated: Yes - My Orders Last 24 Hours: My Active Orders 03/13/17 04:33 Chest 1V Frontal [CR] Stat 03/13/17 04:42 RT Aerosol Therapy [RC] ASDIRECTED Albuterol/Ipratropium [DuoNeb 3.0-0.5 MG/3 ML] 3 ml NEB Q2H PRN - Assessment/Plan Last 24 Hours: My Active Orders 03/13/17 04:33 Chest 1V Frontal [CR] Stat 03/13/17 04:42 RT Aerosol Therapy [RC] ASDIRECTED Albuterol/Ipratropium [DuoNeb 3.0-0.5 MG/3 ML] 3 ml NEB Q2H PRN Plan: would like patient to go to a home in the [facility]. Discharge planning and care discussed and Nursing to help manage home discharge and arrangements. Questions answered and would like to spend some time prior to discharge to [facility].
[2017-03-13] MEDS ORDERED: Albuterol/Ipratropium 3.0-0.5 MG/3 ML Neb Soln NEB PRN (04:42)
[2017-03-13] MEDS: EPINEPHrine 1:10,000 1 MG/10 ML Syringe IVPUSH PRN ×3 (05:02→05:18)
[2017-03-13] MEDS ORDERED: Sodium Chloride 0.9% 1,000 ML IV ONE (05:05)
[2017-03-13] MEDS ORDERED: Amiodarone 150 MG in Dextrose 5% in Water 100 ML IV SCH ×2 (05:20)
[2017-03-13 07:51] VITALS: BP 60/40
== END 2017-03-13 05:30 | disposition expired ==
LOC: LB.ED 04:10
DX: J96.21 Acute and chronic respiratory failure with hypoxia (principal); I50.9 Heart failure, unspecified; J44.9 Chronic obstructive pulmonary disease, unspecified; Z95.810 Presence of automatic (implantable) cardiac defibrillator
CPT/HCPCS: 31500; 36415; 36680; 80048; 82803; 83880; 85025; 92950; 96372; 96374; 96375; 99291; J0171; J0282; J2930; J7040; J7060; J7620